=== PATIENT | female | born 1955 | race Caucasian/White ===

== ENCOUNTER 2017-10-05 06:18 | Day surgery (SDC) | payer OTHER ==
[~2017-10-05] VITALS: Ht 157.5 cm; Wt 60.0 kg
[2017-10-05] MEDS ORDERED: ESTR1TAB80 PO (06:53)
[2017-10-05] MEDS ORDERED: TRAZ100T15 PO (06:53)
[2017-10-05] MEDS ORDERED: SERT100T5 PO (06:53)
[2017-10-05] MEDS ORDERED: DIAZ5TAB4 PO (06:53)
[2017-10-05] MEDS ORDERED: LEVO25TA4 PO (06:53)
[2017-10-05] MEDS ORDERED: HYDR-3241 PO (06:53)
[2017-10-05 06:55] VITALS: BP 135/76
[2017-10-05] MEDS ORDERED: EPINEPHRINE 1 MG/ML, 1ML ONE (07:00)
[2017-10-05] MEDS ORDERED: BUPIVACAINE/PF 0.5% ONE (07:00)
[2017-10-05] MEDS ORDERED: BACITRACIN 50,000 UNIT ONE (07:08)
[2017-10-05] MEDS ORDERED: FENTANYL PF 250 MCG/5ML ONE (07:10)
[2017-10-05] MEDS ORDERED: MIDAZOLAM 1 MG/ML, 2ML ONE (07:10)
[2017-10-05] MEDS ORDERED: PROPOFOL 10 MG/ML, 20ML ONE (07:11)
[2017-10-05] MEDS ORDERED: LIDOCAINE-MPF 2% ,5ML ONE (07:11)
[2017-10-05] MEDS ORDERED: ROCURONIUM 10 MG/ML,10ML ONE (07:12)
[2017-10-05] MEDS ORDERED: PHENYLEPHRINE 10 MG/ML ONE (07:12)
[2017-10-05] MEDS ORDERED: DEXAMETHASONE 4 MG/ML, 1ML ONE (07:31)
[2017-10-05] MEDS ORDERED: CEFOTETAN 2 GM ONE (07:31)
[2017-10-05] MEDS ORDERED: KETAMINE 10 MG/ML, 20ML ONE (07:54)
[2017-10-05] MEDS ORDERED: ONDANSETRON 2MG/ML, 2ML ONE ×2 (07:59)
[2017-10-05] MEDS ORDERED: KETOROLAC 30 MG/1 ML ONE (07:59)
[2017-10-05] MEDS ORDERED: PROMETHAZINE 12.5 MG SUPP PR PRN (08:00)
[2017-10-05] MEDS ORDERED: HYDROmorphone 1 MG/ML, 1ML IV PRN (08:00)
[2017-10-05] MEDS ORDERED: hydrALAzine 20 MG/ML, 1ML IV PRN (08:00)
[2017-10-05] MEDS ORDERED: ACETAMINOPHEN 325 MG TABLET PO PRN (08:00)
[2017-10-05] MEDS ORDERED: LABETALOL 5MG/ML, 20ML IV PRN (08:00)
[2017-10-05] MEDS ORDERED: LORazepam 2 MG/ML, 1ML IVPush PRN (08:00)
[2017-10-05] MEDS ORDERED: MEPERIDINE/PF 25MG/0.5ML IVPush PRN (08:00)
[2017-10-05] MEDS ORDERED: ONDANSETRON 2MG/ML, 2ML IVPush PRN ×2 (08:00→11:30)
[2017-10-05] MEDS ORDERED: NEOSTIGMINE 1 MG/ML, 10ML ONE (08:10)
[2017-10-05] MEDS ORDERED: GLYCOPYRROLATE 0.2MG/1ML, 5ML ONE (08:10)
[2017-10-05] MEDS ORDERED: FENTANYL PF 100 MCG/2ML ONE ×2 (08:38→09:12)
[2017-10-05] MEDS ORDERED: ACETAMINOPHEN 650 MG/20.3 ML UDC ONE (08:38)
[2017-10-05] MEDS ORDERED: OXYcodone 5 MG/5 ML ORAL.SOL UDC ONE ×2 (08:38→09:12)
[2017-10-05] MEDS: FENTANYL PF 100 MCG/2ML IV PRN ×3 (08:41→09:13)
[2017-10-05] MEDS: OXYcodone 5 MG/5 ML ORAL.SOL UDC PO PRN ×2 (08:44→09:14)
[2017-10-05] MEDS ORDERED: CEFAZOLIN 1,000 MG ONE (08:51)
[2017-10-05] MEDS ORDERED: HYDROcodone/APAP 5/325 TABLET PO PRN (11:30)
[2017-10-05] MEDS ORDERED: morphine SULFATE 10 MG/ML, 1ML IVPush PRN (11:30)
== END 2017-10-05 13:00 ==
LOC: OUT 06:18
PROVIDERS: ATTEND Surgery Vascular Surgery
DX: K43.2 Incisional hernia without obstruction or gangrene (principal)
CPT/HCPCS: 49656; 93005; C1781; J0171; J0690; J1100; J1885; J2250; J2370; J2405; J2704; J2710; J3010; J3490; S0074